=== PATIENT | male | born 1955 | race Caucasian/White ===

== ENCOUNTER 2019-06-21 12:43 | Emergency (ER) | payer MEDICARE ==
--- NOTE | 2019-06-21 13:22 | EDM.PDOC ---
ED HPI GENERAL MEDICAL PROBLEM - General Chief Complaint: Neurological Problem Stated Complaint: [facility] Time Seen by Provider: 06/21/19 13:00 - History of Present Illness INITIAL COMMENTS - FREE TEXT/NARRATIVE: 64-year-old male presents the emergency room brought in by [facility] after developing lightheadedness at work. 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 The patient had no idea that someone like this was going to happen. This was not associated with palpitations chest pain chest pressure or breathing difficulties or shortness of breath. Patient has a history of atrial fibrillation and is currently taking Rythmol 80 mg twice daily and diltiazem 240 mg XL in the evenings. Patient also has a history of hypothyroidism diabetes depression. He does take a baby aspirin at night. 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 Treatments OPERATOR SPECIALIST COMMUNICATIONS: Reports: Other (see below) Other Treatments OPERATOR SPECIALIST COMMUNICATIONS: none - Related Data Allergies Allergy/AdvReac Type Severity Reaction Status Date / Time levofloxacin [From Levaquin] Allergy Intermediate Edema Verified 08/27/15 05:32 Home Meds: Home Meds Diltiazem [Cardizem CD] 240 mg PO DAILY 09/18/13 [History] Glucotrol. 40 mg PO DAILY 09/18/13 [History] Levothyroxine 225 mcg PO DAILY 11/06/13 [History] Citalopram [Celexa] 10 mg PO DAILY 07/16/15 [History] ClonazePAM [KlonoPIN] 0.25 mg PO TID PRN #90 tab.dis 07/16/15 [Rx] Pravastatin [Pravachol] 40 mg PO BEDTIME 07/16/15 [History] Albuterol/Ipratropium [DuoNeb 3.0-0.5 MG/3 ML] 3 ml NEB Q4H PRN #0 neb 07/17/15 [Rx] Fluticasone/Salmeterol [Advair 250-50] 1 puff INH BID inhaler 07/17/15 [Rx] Canagliflozin [Invokana] 08/27/15 [History] Canagliflozin/Metformin HCl [Invokamet 150-1,000 mg Tablet] 1 tab PO BID [History] Magnesium Oxide 400 mg PO DAILY #14 tablet 08/27/15 [Rx] Propafenone [Rythmol] 600 mg PO ASDIRECTED PRN 08/27/15 [History] Diltiazem [Cardizem CD] 120 mg PO DAILY #30 cap.er 06/21/19 [Rx] Past Medical History Other HEENT History: wears glasses Cardiovascular History: Reports: Afib, High Cholesterol, Hypertension Respiratory History: Reports: Asthma Gastrointestinal History: Reports: Cholelithiasis Endocrine/Metabolic History: Reports: Diabetes, Type II - Past Surgical History GI Surgical History: Reports: Cholecystectomy Social & Family History - Family History Cardiac: Reports: [place] Neurological: Reports: CVA Endocrine/Metabolic: Reports: Diabetes, type II - Tobacco Use Smoking Status *Q: Never Smoker - Caffeine Use Caffeine Use: Reports: Coffee, Soda - Recreational Drug Use Recreational Drug Use: No ED ROS GENERAL - Review of Systems Review Of Systems: See Below Constitutional: Reports: No Symptoms HEENT: Reports: No Symptoms Respiratory: Reports: No Symptoms Cardiovascular: Reports: Lightheadedness. Denies: Chest Pain, Dyspnea on Exertion, Palpitations Endocrine: Reports: No Symptoms GI/Abdominal: Reports: No Symptoms Neurological: Reports: No Symptoms Psychiatric: Reports: No Symptoms Hematologic/Lymphatic: Reports: No Symptoms ED EXAM, GENERAL - Physical Exam Exam: See Below Exam Limited By: No Limitations General Appearance: Alert, No Apparent Distress Head: Atraumatic, Normocephalic Neck: Normal Inspection, Supple, Non-Tender, Full Range of Motion. No: Lymphadenopathy (L), Lymphadenopathy (R) Respiratory/Chest: No Respiratory Distress, Lungs Clear, Normal Breath Sounds Cardiovascular: Regular Rate, Rhythm, No Edema, No Murmur, Bradycardia (Rate in the 50s) GI/Abdominal: Normal Bowel Sounds, Soft, Non-Tender Back Exam: Normal Inspection. No: CVA Tenderness (L), CVA Tenderness (R) Extremities: Normal Inspection, No Pedal Edema Neurological: Alert, Oriented, Normal Cognition EKG INTERPRETATION EKG Date: 06/21/19 Rhythm: Other (Probable sinus bradycardia rate 51 he has consistent P waves in lead II but P waves are not evident in most the other leads) [place]: Normal P-Wave: Present QRS: Other (Borderline intermittent ventricular conduction delay) ST-T: Other (Nonspecific changes nondiagnostic mostly normal) QT: Normal Comparison: No Change EKG Interpretation Comments: Review to EKG from August 2015 which is essentially unchanged. Course - Vital Signs Last Recorded V/S: Last Vital Signs Temp 35.2 C L 06/21/19 12:52 Pulse 53 L 06/21/19 12:52 Resp 17 06/21/19 12:52 BP 113/79 06/21/19 12:52 Pulse Ox 98 06/21/19 12:52 - Orders/Labs/Meds Orders: Active Orders 24 hr Category Date Time Status EKG Documentation Completion [RC] STAT Care 06/21/19 13:17 Active Holter Monitor 48 Hours [RC] .PRN Care 06/21/19 15:39 Ordered EKG 12 Lead [EK] Stat Ther 06/21/19 13:06 Ordered Labs: Laboratory Tests 06/21/19 06/21/19 Range/Units 13:00 13:00 WBC 10.09 H (4.23-9.07) K/mm3 RBC 4.85 (4.63-6.08) M/mm3 Hgb 15.5 (13.7-17.5) gm/dl Hct 46.1 (40.1-51.0) % MCV 95.1 H (79.0-92.2) fl MCH 32.0 (25.7-32.2) pg MCHC 33.6 (32.2-35.5) g/dl RDW Std Deviation 44.1 H (35.1-43.9) fL Plt Count 187 (163-337) K/mm3 MPV 10.8 (9.4-12.3) fl Neutrophils % (Manual) 73 H (40-60) % Band Neutrophils % 0 (0-10) % Lymphocytes % (Manual) 20 (20-40) % Atypical Lymphs % 0 % Monocytes % (Manual) 7 (2-10) % Eosinophils % (Manual) 0 L (0.8-7.0) % Basophils % (Manual) 0 L (0.2-1.2) Platelet Estimate Adequate RBC Morph Comment Normal Sodium 139 (136-145) mEq/L Potassium 4.8 (3.5-5.1) mEq/L Chloride 104 (98-107) mEq/L Carbon Dioxide 26 (21-32) mEq/L Anion Gap 13.8 (5-15) BUN 20 H (7-18) mg/dL Creatinine 1.2 (0.7-1.3) mg/dL Est Cr Clr Drug Dosing 67.36 mL/min Estimated GFR (MDRD) > 60 (>60) mL/min BUN/Creatinine Ratio 16.7 (14-18) Glucose 236 H (80-115) mg/dL Calcium 8.6 (8.5-10.1) mg/dL Magnesium 2.0 (1.8-2.4) mg/dl Total Bilirubin 0.4 (0.2-1.0) mg/dL AST 28 (15-37) U/L ALT 55 (16-63) U/L Alkaline Phosphatase 73 (46-116) U/L Troponin I < 0.017 (0.00-0.056) ng/mL Total Protein 7.0 (6.4-8.2) g/dl Albumin 3.6 (3.4-5.0) g/dl Globulin 3.4 gm/dL Albumin/Globulin Ratio 1.1 (1-2) TSH 3rd Generation 2.385 (0.358-3.74) uIU/mL - Re-Assessments/Exams Free Text/Narrative Re-Assessment/Exam: 06/21/19 15:41 EKG shows probable sinus bradycardia he is got P waves only seen in lead II cannot necessarily exclude a junctional rhythm but think it is highly unlikely. He has some borderline interventricular conduction delay this is unchanged from his prior EKG almost 3 years ago with him being on Rythmol, A1c antiarrhythmic QRS widening could be an indication to back off his dose however this does not appear to be the case as this looks like it is a stable EKG change. The patient takes Rythmol 80 mg twice daily and diltiazem XL 240 mg daily. I did review the situation with Dr. Mccann cofferdam construction supervisor for Dr. Marinelli, and we agreed the best course of treatment would be decrease his diltiazem to 120 XL mg a day in the unlikely chance he is in a junctional rhythm backing off the diltiazem will also help with this. Departure - Departure Time of Disposition: 15:44 Disposition: Home, Self-Care 01 Clinical Impression: Near syncope, Bradycardia - Discharge Information Prescriptions: Diltiazem [Cardizem CD] 120 mg PO DAILY #30 cap.er Referrals: Jany Barney PA-C [Primary Care Provider] - Forms: ED Department Discharge Additional Instructions: Turn to the emergency room with any questions problems or worsening symptoms. Return the Holter as directed. Change the diltiazem from 240 mg to 120 mg a day. Follow-up with Dr. Marinelli in a couple of weeks. Sepsis Event Note - Evaluation Sepsis Screening Result: No Definite Risk - Focused Exam Vital Signs: Vital Signs Temp Pulse Resp BP Pulse Ox 06/21/19 12:52 35.2 C L 53 L 17 113/79 98 Date Exam was Performed: 06/21/19 Time Exam was Performed: 15:40 - My Orders Last 24 Hours: My Active Orders 06/21/19 13:06 EKG 12 Lead [EK] Stat 06/21/19 13:17 EKG Documentation Completion [RC] STAT 06/21/19 15:39 Holter Monitor 48 Hours [RC] .PRN - Assessment/Plan Last 24 Hours: My Active Orders 06/21/19 13:06 EKG 12 Lead [EK] Stat 06/21/19 13:17 EKG Documentation Completion [RC] STAT 06/21/19 15:39 Holter Monitor 48 Hours [RC] .PRN
--- NOTE | 2019-06-21 15:23 | CR ---
Chest: Portable view of the chest was obtained. Comparison: [facility] chest CT study of 12/07/15 and chest x-ray of 11/15/15. Heart size and mediastinum are within normal limits for portable technique. Lungs are clear with no acute parenchymal change. Bony structures are grossly intact. Impression: 1. Nothing acute is appreciated on portable chest x-ray. Diagnostic code #1 This report was dictated in [place] Standard Time
[2019-06-21 16:25] VITALS: BP 102/69; PULSE 65
== END 2019-06-21 16:20 | disposition home or self-care (01) ==
LOC: SUPCPDRO 12:43 → JD.ED 12:43
DX: R00.1 Bradycardia, unspecified (principal); I10 Essential (primary) hypertension; Z88.1 Allergy status to other antibiotic agents; Z79.899 Other long term (current) drug therapy
CPT/HCPCS: 36415; 71045; 71045-26; 80053; 83735; 84443; 84484; 85007; 85027; 93005; 93010; 93225; 93226; 99284; 99284-25

== ENCOUNTER 2019-07-12 20:48 | Emergency (ER) | payer MEDICARE ==
[2019-07-12] MEDS ORDERED: Sodium Chloride 0.9% 1,000 ML IV STA (21:20)
[2019-07-12] MEDS ORDERED: Sodium Chloride 0.9% 10 ML Syringe FLUSH PRN (21:20)
--- NOTE | 2019-07-12 21:47 | EDM.PDOC ---
ED HPI GENERAL MEDICAL PROBLEM - General Chief Complaint: Gastrointestinal Problem Stated Complaint: [facility] Time Seen by Provider: 07/12/19 21:09 Source of Information: Reports: Patient, EMS History Limitations: Reports: No Limitations - History of Present Illness INITIAL COMMENTS - FREE TEXT/NARRATIVE: The patient presents by [facility] for a fever, nausea and vomiting. He says this started today. He has no other symptoms such as cough, sore throat, ear pain, chest pain, shortness of breath, abdominal pain, dysuria or diarrhea. He said his heart rate was faster today. He has a history of A-fib but he has been out of it for years. He has no numbness but he does have generalized weakness. Onset: Gradual Duration: Hour(s): Severity: Moderate Improves with: Reports: None Worsens with: Reports: None Associated Symptoms: Reports: Fever/Chills, Nausea/Vomiting. Denies: Chest Pain , Cough, Headaches, Shortness of Breath - Related Data Allergies Allergy/AdvReac Type Severity Reaction Status Date / Time levofloxacin [From Levaquin] Allergy Intermediate Edema Verified 07/12/19 20:58 Home Meds: Home Meds Levothyroxine 275 mcg PO DAILY 11/06/13 [History] Citalopram [Celexa] 10 mg PO DAILY 07/16/15 [History] Propafenone [Rythmol] 300 mg PO BID 08/27/15 [History] Aspirin 81 mg PO DAILY 07/12/19 [History] Cephalexin [Keflex] 500 mg PO BID #14 capsule 07/12/19 [Rx] Diltiazem [Cardizem CD] 110 mg PO DAILY 07/12/19 [History] Liraglutide [Victoza] 1.8 mg PO DAILY 07/12/19 [History] Ondansetron [Zofran ODT] 4 mg PO Q6H PRN #20 tab.dis 07/12/19 [Rx] Rosuvastatin [Crestor] 10 mg PO DAILY 07/12/19 [History] Temazepam [Restoril] 30 mg PO DAILY 07/12/19 [History] glipiZIDE [Glucotrol XL] 10 mg PO DAILY 07/12/19 [History] Past Medical History Other HEENT History: wears glasses Cardiovascular History: Reports: Afib, High Cholesterol, Hypertension Respiratory History: Reports: Asthma Gastrointestinal History: Reports: Cholelithiasis, Other (See Below) Other Gastrointestinal History: CDIFF Neurological History: Reports: Other (See Below) Other Neuro History: myasthenia gravis Endocrine/Metabolic History: Reports: Diabetes, Type II, Hypothyroidism - Infectious Disease History Infectious Disease History: Reports: C-Difficile - Past Surgical History GI Surgical History: Reports: Cholecystectomy Musculoskeletal Surgical History: Reports: Shoulder Surgery Social & Family History - Family History Cardiac: Reports: [place] Neurological: Reports: CVA Endocrine/Metabolic: Reports: Diabetes, type II - Tobacco Use Smoking Status *Q: Never Smoker Second Hand Smoke Exposure: No - Caffeine Use Caffeine Use: Reports: Soda - Recreational Drug Use Recreational Drug Use: No ED ROS GENERAL - Review of Systems Review Of Systems: See Below Constitutional: Reports: Fever, Chills HEENT: Reports: No Symptoms Respiratory: Reports: No Symptoms Cardiovascular: Reports: No Symptoms Endocrine: Reports: No Symptoms GI/Abdominal: Reports: Nausea, Vomiting. Denies: Abdominal Pain, Diarrhea : Reports: No Symptoms Musculoskeletal: Reports: No Symptoms ED EXAM, GI/ABD - Physical Exam Exam: See Below Exam Limited By: No Limitations General Appearance: Alert, No Apparent Distress Ears: Normal External Exam Nose: Normal Inspection Head: Atraumatic, Normocephalic Neck: Normal Inspection Respiratory/Chest: No Respiratory Distress, Lungs Clear, Normal Breath Sounds Cardiovascular: Regular Rate, Rhythm, No Edema, No Murmur GI/Abdominal Exam: Soft, Non-Tender, No Organomegaly, No Mass Extremities: Normal Inspection EKG INTERPRETATION EKG Date: 07/12/19 Time: 21:32 Rhythm: NSR Rate (Beats/Min): 81 [place]: Normal P-Wave: Present QRS: Normal ST-T: Normal QT: Normal Course - Vital Signs Last Recorded V/S: Last Vital Signs Temp 97.1 F 07/12/19 20:55 Pulse 84 07/12/19 20:55 Resp 16 07/12/19 20:55 BP 113/66 07/12/19 20:55 Pulse Ox 94 L 07/12/19 20:55 - Orders/Labs/Meds Orders: Active Orders 24 hr Category Date Time Status EKG Documentation Completion [RC] ASDIRECTED Care 07/12/19 21:21 Active Peripheral IV Care [RC] . DIRECTED Care 07/12/19 21:21 Active CULTURE URINE [RM] Stat Lab 07/12/19 22:00 Received Sodium Chloride 0.9% [Saline Flush] Med 07/12/19 21:20 Active 10 ml FLUSH ASDIRECTED PRN Peripheral IV Insertion Adult [OM.PC] Stat Oth 07/12/19 21:20 Ordered EKG 12 Lead [EK] Stat Ther 07/12/19 21:21 Ordered Medication Orders Sodium Chloride (Saline Flush) 10 ml FLUSH ASDIRECTED PRN PRN Reason: Keep Vein Open Last Admin: 07/12/19 21:37 Dose: 10 ml Labs: Laboratory Tests 07/12/19 07/12/19 07/12/19 Range/Units 21:30 21:30 22:00 WBC 17.40 H (4.23-9.07) K/mm3 RBC 4.42 L (4.63-6.08) M/mm3 Hgb 14.3 (13.7-17.5) gm/dl Hct 42.2 (40.1-51.0) % MCV 95.5 H (79.0-92.2) fl MCH 32.4 H (25.7-32.2) pg MCHC 33.9 (32.2-35.5) g/dl RDW Std Deviation 44.1 H (35.1-43.9) fL Plt Count 185 (163-337) K/mm3 MPV 10.5 (9.4-12.3) fl Neut % (Auto) 84.6 H (34.0-67.9) % Lymph % (Auto) 6.1 L (21.8-53.1) % [place] % (Auto) 8.9 (5.3-12.2) % Eos % (Auto) 0.1 L (0.8-7.0) Baso % (Auto) 0.1 (0.1-1.2) % Neut # (Auto) 14.71 H (1.78-5.38) K/mm3 Lymph # (Auto) 1.07 L (1.32-3.57) K/mm3 [place] # (Auto) 1.55 H (0.30-0.82) K/mm3 Eos # (Auto) 0.02 L (0.04-0.54) K/mm3 Baso # (Auto) 0.02 (0.01-0.08) K/mm3 Manual Slide Review Abnormal smear Sodium 132 L (136-145) mEq/L Potassium 4.0 (3.5-5.1) mEq/L Chloride 97 L (98-107) mEq/L Carbon Dioxide 24 (21-32) mEq/L Anion Gap 15.0 (5-15) BUN 20 H (7-18) mg/dL Creatinine 1.5 H (0.7-1.3) mg/dL Est Cr Clr Drug Dosing 53.89 mL/min Estimated GFR (MDRD) 47 (>60) mL/min BUN/Creatinine Ratio 13.3 L (14-18) Glucose 262 H (80-115) mg/dL Calcium 9.0 (8.5-10.1) mg/dL Total Bilirubin 1.1 H (0.2-1.0) mg/dL AST 14 L (15-37) U/L ALT 39 (16-63) U/L Alkaline Phosphatase 65 (46-116) U/L Troponin I < 0.017 (0.00-0.056) ng/mL Total Protein 6.9 (6.4-8.2) g/dl Albumin 3.4 (3.4-5.0) g/dl Globulin 3.5 gm/dL Albumin/Globulin Ratio 1.0 (1-2) Urine Color [place] H (Yellow) Urine Appearance Cloudy H (Clear) Urine pH 5.5 (5.0-8.0) Ur Specific [place] > or = 1.030 (1.005-1.030) Urine Protein 1+ H (Negative) Urine Glucose (UA) Negative (Negative) Urine Ketones 2+ H (Negative) Urine Occult Blood Trace-intact H (Negative) Urine Nitrite Positive H (Negative) Urine Bilirubin 1+ H (Negative) Urine Urobilinogen 0.2 (0.2-1.0) Ur Leukocyte Esterase 2+ H (Negative) Urine RBC 5-10 H (0-5) /hpf Urine WBC 50-75 H (0-5) /hpf Urine WBC Clumps Few (NOT SEEN) /hpf Ur Squamous Epith Cells 0-5 (0-5) /hpf Urine Bacteria Moderate H (FEW) /hpf Urine Mucus Many H (FEW) /hpf Meds: Medications Generic Name Dose Route Start Last Admin Trade Name Freq PRN Reason Stop Dose Admin Sodium Chloride 10 ml 07/12/19 21:20 07/12/19 21:37 Saline Flush FLUSH 10 ml ASDIRECTED PRN Administration Keep Vein Open Discontinued Medications Generic Name Dose Route Start Last Admin Trade Name [place]acido PRN Reason Stop Dose Admin Acetaminophen 975 mg 07/12/19 22:34 07/12/19 22:42 Tylenol PO 07/12/19 22:35 975 mg NOW ONE Administration Sodium Chloride 1,000 mls @ 1,000 mls/hr 07/12/19 21:20 07/12/19 21:37 Normal Saline IV 07/12/19 22:19 1,000 mls/hr .BOLUS STA Administration Ceftriaxone Sodium 2 gm/ 100 mls @ 200 mls/hr 07/12/19 22:28 07/12/19 22:40 Sodium Chloride IV 07/12/19 22:57 200 mls/hr ONETIME ONE Administration Ondansetron HCl 4 mg 07/12/19 23:15 Zofran Odt PO 07/12/19 23:16 ONETIME ONE - Re-Assessments/Exams Free Text/Narrative Re-Assessment/Exam: 07/12/19 21:46 I ordered an IV NS 1L bolus, labs, UA and an EKG. He did get zofran by [facility]. 07/12/19 23:16 His WBC was elevated at 17.4. His Na was a little low at 132. His creatine was elevated at 1.5. His glucose is 262. His troponin is negative. His UA shows a UTI. I have ordered a urine culture and rocephin 2 grams IV. His EKG shows a NSR with no acute changes. He was able to keep down some water and he feels better. I feel it is safe to discharge him home. Departure - Departure Time of Disposition: 23:20 Disposition: Home, Self-Care 01 Condition: Good Clinical Impression: UTI (urinary tract infection) Qualifiers: Urinary tract infection type: site unspecified Hematuria presence: without hematuria Qualified Code(s): N39.0 - Urinary tract infection, site not specified Nausea and vomiting Qualifiers: Vomiting type: unspecified Vomiting Intractability: non-intractable Qualified Code(s): R11.2 - Nausea with vomiting, unspecified - Discharge Information *PRESCRIPTION DRUG MONITORING PROGRAM REVIEWED*: Not Applicable *COPY OF PRESCRIPTION DRUG MONITORING REPORT IN PATIENT KELLY: Not Applicable Prescriptions: Cephalexin [Keflex] 500 mg PO BID #14 capsule Ondansetron [Zofran ODT] 4 mg PO Q6H PRN #20 tab.dis PRN Reason: Nausea\vomiting Referrals: PCP,None [Primary Care Provider] - Jany Barney PA-C [Physician Mortuary Operations Manager] - 3 Days Forms: ED Department Discharge Additional Instructions: Drink plenty of fluids. Take the keflex 2 times per day for a week. Take the zofran every 6 hours as needed for nausea and vomiting. Take tylenol or motrin for any pain or fever. Follow up with Olya Barney within 3 days. Pleaser return if you are worse. Sepsis Event Note - Evaluation Sepsis Screening Result: No Definite Risk - Focused Exam Vital Signs: Vital Signs Temp Pulse Resp BP Pulse Ox 07/12/19 20:55 97.1 F 84 16 113/66 94 L Date Exam was Performed: 07/12/19 Time Exam was Performed: 23:16 - My Orders Last 24 Hours: My Active Orders 07/12/19 21:20 Sodium Chloride 0.9% [Saline Flush] 10 ml FLUSH ASDIRECTED PRN Peripheral IV Insertion Adult [OM.PC] Stat 07/12/19 21:21 EKG Documentation Completion [RC] ASDIRECTED Peripheral IV Care [RC] . DIRECTED EKG 12 Lead [EK] Stat 07/12/19 22:00 CULTURE URINE [RM] Stat - Assessment/Plan Last 24 Hours: My Active Orders 07/12/19 21:20 Sodium Chloride 0.9% [Saline Flush] 10 ml FLUSH ASDIRECTED PRN Peripheral IV Insertion Adult [OM.PC] Stat 07/12/19 21:21 EKG Documentation Completion [RC] ASDIRECTED Peripheral IV Care [RC] . DIRECTED EKG 12 Lead [EK] Stat 07/12/19 22:00 CULTURE URINE [RM] Stat
[2019-07-12] MEDS ORDERED: cefTRIAXone 2 GM in Sodium Chloride 0.9% 100 ML IV ONE (22:28)
[2019-07-12] MEDS ORDERED: Acetaminophen 325 MG Tab PO ONE (22:34)
[2019-07-12] MEDS ORDERED: Ondansetron 4 MG Tab.DIS PO ONE (23:15)
[2019-07-12 23:51] VITALS: BP 113/62; PULSE 82
== END 2019-07-12 23:30 | disposition home or self-care (01) ==
LOC: JD.ED 20:48
DX: N39.0 Urinary tract infection, site not specified (principal); R11.2 Nausea with vomiting, unspecified; I48.91 Unspecified atrial fibrillation; E78.00 Pure hypercholesterolemia, unspecified; I10 Essential (primary) hypertension; E11.9 Type 2 diabetes mellitus without complications; E03.9 Hypothyroidism, unspecified; Z88.1 Allergy status to other antibiotic agents; Z79.890 Hormone replacement therapy; Z79.82 Long term (current) use of aspirin; Z79.899 Other long term (current) drug therapy; Z79.84 Long term (current) use of oral hypoglycemic drugs
CPT/HCPCS: 36415; 80053; 81001; 84484; 85025; 87086; 87088; 87186; 87804; 93005; 96361; 96365; 99284; A9270; J0696; J7030; J7050; 99283

== ENCOUNTER 2019-07-13 09:57 | Emergency (ER) | payer MEDICARE ==
[2019-07-13] MEDS ORDERED: Sodium Chloride 0.9% 10 ML Syringe FLUSH PRN (10:18)
[2019-07-13] MEDS ORDERED: Sodium Chloride 0.9% 1,000 ML IV SCH ×3 (10:30→15:45)
[2019-07-13] MEDS ORDERED: Lactated Ringers 1,000 ML IV ONE (13:00)
--- NOTE | 2019-07-13 13:29 | EDM.PDOC ---
ED HPI GENERAL MEDICAL PROBLEM - General Chief Complaint: Cardiovascular Problem Stated Complaint: [facility] Time Seen by Provider: 07/13/19 10:07 Source of Information: Reports: Patient, RN Notes Reviewed - History of Present Illness INITIAL COMMENTS - FREE TEXT/NARRATIVE: 64-year-old male returns to the ED this morning nausea, vomiting, dizziness. He did have sensation of palpitations at home. He was brought here [facility] route [facility] and patient states that there were episodes of his heart rate is fast is up into the 150s during transport but those episodes were all relatively brief. ED he still does feel weak and dizzy but has found to be in a sinus rhythm with a normal rate. He states he was ill all of yesterday with nausea vomiting. Dilated here in the ED last evening and in addition to the nausea vomiting was found to have a UTI with an elevated BBC count history of with 2 g IV Rocephin as well as IV fluid and allowed to go home. Her in the night then with the above-described symptoms us morning. Nausea was better at time of exam. No abdominal or back discomfort at time of exam. His mouth does feel dry. No definite fever. - Related Data Allergies Allergy/AdvReac Type Severity Reaction Status Date / Time levofloxacin [From Levaquin] Allergy Intermediate Edema Verified 07/13/19 10:10 Home Meds: Home Meds Levothyroxine 275 mcg PO DAILY 11/06/13 [History] Citalopram [Celexa] 10 mg PO DAILY 07/16/15 [History] Propafenone [Rythmol] 300 mg PO BID 08/27/15 [History] Aspirin 81 mg PO DAILY 07/12/19 [History] Cephalexin [Keflex] 500 mg PO BID #14 capsule 07/12/19 [Rx] Diltiazem [Cardizem CD] 110 mg PO DAILY 07/12/19 [History] Liraglutide [Victoza] 1.8 mg INJECT DAILY 07/12/19 [History] Ondansetron [Zofran ODT] 4 mg PO Q6H PRN #20 tab.dis 07/12/19 [Rx] Rosuvastatin [Crestor] 10 mg PO DAILY 07/12/19 [History] Temazepam [Restoril] 30 mg PO DAILY 07/12/19 [History] glipiZIDE [Glucotrol XL] 10 mg PO DAILY 07/12/19 [History] Past Medical History Other HEENT History: wears glasses Cardiovascular History: Reports: Afib, High Cholesterol, Hypertension Respiratory History: Reports: Asthma Gastrointestinal History: Reports: Cholelithiasis, Other (See Below) Other Gastrointestinal History: CDIFF Neurological History: Reports: Other (See Below) Other Neuro History: myasthenia gravis Endocrine/Metabolic History: Reports: Diabetes, Type II, Hypothyroidism - Infectious Disease History Infectious Disease History: Reports: C-Difficile - Past Surgical History GI Surgical History: Reports: Cholecystectomy Musculoskeletal Surgical History: Reports: Shoulder Surgery Social & Family History - Family History Cardiac: Reports: [place] Neurological: Reports: CVA Endocrine/Metabolic: Reports: Diabetes, type II - Tobacco Use Smoking Status *Q: Former Smoker Used Tobacco, but Quit: No - Caffeine Use Caffeine Use: Reports: Coffee - Recreational Drug Use Recreational Drug Use: No ED ROS GENERAL - Review of Systems Review Of Systems: See Below Constitutional: Denies: Fever, Chills, Diaphoresis HEENT: Denies: Throat Pain Respiratory: Denies: Shortness of Breath Cardiovascular: Denies: Chest Pain, Edema GI/Abdominal: Reports: Abdominal Pain, Nausea (Gone), Vomiting. Denies: Diarrhea (Now better), Hematemesis, Hematochezia, Melena Musculoskeletal: Reports: No Symptoms Skin: Reports: No Symptoms Neurological: Reports: Dizziness ED EXAM, GENERAL - Physical Exam Exam: See Below General Appearance: Alert, No Apparent Distress Eye Exam: Bilateral Eye: PERRL Throat/Mouth: Other (Oral mucosa is dry) Head: Atraumatic. No: Facial Swelling Neck: Supple, Full Range of Motion Respiratory/Chest: No Respiratory Distress, Lungs Clear, Normal Breath Sounds Cardiovascular: Regular Rate, Rhythm GI/Abdominal: Soft, Non-Tender. No: Guarding Back Exam: No: CVA Tenderness (L), CVA Tenderness (R) Extremities: Normal Inspection. No: Pedal Edema, Leg Pain, Redness Neurological: Alert, Oriented, No Motor/Sensory Deficits Skin Exam: Warm, Dry, Normal Color Course - Vital Signs Last Recorded V/S: Last Vital Signs Temp 99.2 F 07/13/19 10:04 Pulse 70 07/13/19 17:00 Resp 14 07/13/19 17:00 BP 114/60 07/13/19 17:00 Pulse Ox 100 07/13/19 17:00 - Orders/Labs/Meds Orders: Active Orders 24 hr Category Date Time Status EKG 12 Lead [EKG Documentation Completion] [] STAT Care 07/13/19 10:18 Active Peripheral IV Care [RC] . DIRECTED Care 07/13/19 10:19 Active Peripheral IV Insertion Adult [OM.PC] Stat Oth 07/13/19 10:18 Ordered Labs: Laboratory Tests 07/13/19 07/13/19 Range/Units 10:38 10:38 WBC 15.98 H (4.23-9.07) K/mm3 RBC 4.05 L (4.63-6.08) M/mm3 Hgb 13.0 L (13.7-17.5) gm/dl Hct 38.9 L (40.1-51.0) % MCV 96.0 H (79.0-92.2) fl MCH 32.1 (25.7-32.2) pg MCHC 33.4 (32.2-35.5) g/dl RDW Std Deviation 45.6 H (35.1-43.9) fL Plt Count 152 L (163-337) K/mm3 MPV 10.5 (9.4-12.3) fl Neut % (Auto) 84.9 H (34.0-67.9) % Lymph % (Auto) 5.5 L (21.8-53.1) % [place] % (Auto) 9.1 (5.3-12.2) % Eos % (Auto) 0 L (0.8-7.0) Baso % (Auto) 0.1 (0.1-1.2) % Neut # (Auto) 13.57 H (1.78-5.38) K/mm3 Lymph # (Auto) 0.88 L (1.32-3.57) K/mm3 [place] # (Auto) 1.45 H (0.30-0.82) K/mm3 Eos # (Auto) 0.00 L (0.04-0.54) K/mm3 Baso # (Auto) 0.01 (0.01-0.08) K/mm3 Manual Slide Review Abnormal smear Sodium 131 L (136-145) mEq/L Potassium 3.5 (3.5-5.1) mEq/L Chloride 99 (98-107) mEq/L Carbon Dioxide 22 (21-32) mEq/L Anion Gap 13.5 (5-15) BUN 19 H (7-18) mg/dL Creatinine 1.3 (0.7-1.3) mg/dL Est Cr Clr Drug Dosing 62.18 mL/min Estimated GFR (MDRD) 55 (>60) mL/min BUN/Creatinine Ratio 14.6 (14-18) Glucose 264 H (80-115) mg/dL Calcium 8.2 L (8.5-10.1) mg/dL Total Bilirubin 0.8 (0.2-1.0) mg/dL AST 12 L (15-37) U/L ALT 31 (16-63) U/L Alkaline Phosphatase 58 (46-116) U/L Total Protein 6.2 L (6.4-8.2) g/dl Albumin 2.9 L (3.4-5.0) g/dl Globulin 3.3 gm/dL Albumin/Globulin Ratio 0.9 L (1-2) Meds: Medications Discontinued Medications Generic Name Dose Route Start Last Admin Trade Name Freq PRN Reason Stop Dose Admin Sodium Chloride 1,000 mls @ 999 mls/hr 07/13/19 10:30 07/13/19 10:25 Normal Saline IV 999 mls/hr ONETIME SHREYAS Administration Lactated Ringer's 1,000 mls @ 999 mls/hr 07/13/19 13:00 07/13/19 13:03 Ringers, Lactated IV 07/13/19 14:00 999 mls/hr .BOLUS ONE Administration Ceftriaxone Sodium 2 gm/ 100 mls @ 200 mls/hr 07/13/19 15:45 07/13/19 15:51 Sodium Chloride IV 200 mls/hr Q24H SHREYAS Administration Sodium Chloride 1,000 mls @ 999 mls/hr 07/13/19 15:45 07/13/19 15:51 Normal Saline IV 999 mls/hr ONETIME SHREYAS Administration Sodium Chloride 1,000 mls @ 999 mls/hr 07/13/19 15:45 Normal Saline IV ONETIME SHREYAS Sodium Chloride 10 ml 07/13/19 10:18 07/13/19 10:25 Saline Flush FLUSH 10 ml ASDIRECTED PRN Administration Keep Vein Open - Re-Assessments/Exams Free Text/Narrative Re-Assessment/Exam: 07/13/19 13:28 Have given 1 L of normal saline. Also given Zofran for nausea vomiting. He feels much better at this time, nausea is gone, no abdominal pain at this time. Pressures been running low in the mid 90s systolic over upper 60s. He still has not had to void. We'll run one more liter of fluid and continue to watch his blood pressures carefully. 16:00. Blood pressure still relatively low at around 100 systolic after the second liter of IV fluid, he still was not voided he continues to have no further abdominal pain, nausea or vomiting making water and also was able to tolerate some soup broth without difficulty. Therefore he should be over go home. Her dose of 2 g Rocephin IV, further IV fluid before discharge. 17:40. Blood pressure did come up to the 115 range, after about 2-1/2 L of fluid. Did void a short time ago, discharge instructions as documented. No runs of A. fib while here in the ED. Departure - Departure Time of Disposition: 16:36 Disposition: Home, Self-Care 01 Condition: Fair Clinical Impression: Palpitations UTI (urinary tract infection) Qualifiers: Urinary tract infection type: site unspecified Hematuria presence: without hematuria Qualified Code(s): N39.0 - Urinary tract infection, site not specified Vomiting Qualifiers: Vomiting type: unspecified Vomiting Intractability: non-intractable Nausea presence: with nausea Qualified Code(s): R11.2 - Nausea with vomiting, unspecified Hypotension Qualifiers: Hypotension type: unspecified hypotension type Qualified Code(s): I95.9 - Hypotension, unspecified Instructions: Sepsis, Adult, Urinary Tract Infection, Adult Referrals: Jany Barney PA-C [Primary Care Provider] - Forms: ED Department Discharge Additional Instructions: Clear liquids for the next several hours, then very careful bland diet as tolerated, start the cephalexin prescribed by Dr. [place] tomorrow morning and continue that as prescribed to completion. Continue other medications as prescribed. [facility] possible Thursday for recheck. Return to ED as needed if symptoms worsening in any way Sepsis Event Note - Evaluation Sepsis Screening Result: No Definite Risk - Focused Exam Vital Signs: Vital Signs Temp Pulse Resp BP Pulse Ox 07/13/19 17:00 70 14 114/60 100 07/13/19 10:04 99.2 F 79 18 104/65 89 L Date Exam was Performed: 07/13/19 Time Exam was Performed: 20:20 - My Orders Last 24 Hours: My Active Orders 07/13/19 10:18 EKG 12 Lead [EKG Documentation Completion] [RC] STAT Peripheral IV Insertion Adult [OM.PC] Stat 07/13/19 10:19 Peripheral IV Care [RC] . DIRECTED - Assessment/Plan Last 24 Hours: My Active Orders 07/13/19 10:18 EKG 12 Lead [EKG Documentation Completion] [RC] STAT Peripheral IV Insertion Adult [OM.PC] Stat 07/13/19 10:19 Peripheral IV Care [RC] . DIRECTED
[2019-07-13] MEDS ORDERED: cefTRIAXone 2 GM in Sodium Chloride 0.9% 100 ML IV SCH (15:45)
[2019-07-13 17:04] VITALS: BP 114/60; PULSE 70
== END 2019-07-13 17:03 | disposition home or self-care (01) ==
LOC: JD.ED 09:57
DX: R00.2 Palpitations (principal); N39.0 Urinary tract infection, site not specified; R11.2 Nausea with vomiting, unspecified; I95.9 Hypotension, unspecified; I48.91 Unspecified atrial fibrillation; E78.00 Pure hypercholesterolemia, unspecified; I10 Essential (primary) hypertension; E11.9 Type 2 diabetes mellitus without complications; E03.9 Hypothyroidism, unspecified; Z88.1 Allergy status to other antibiotic agents; Z79.890 Hormone replacement therapy; Z79.899 Other long term (current) drug therapy; Z79.82 Long term (current) use of aspirin; Z79.84 Long term (current) use of oral hypoglycemic drugs; Z87.891 Personal history of nicotine dependence
CPT/HCPCS: 36415; 80053; 85025; 93005; 96361; 96365; 99285; J0696; J7030; J7050; J7120

== ENCOUNTER 2021-06-08 17:22 | Emergency (ER) | payer MEDICARE ==
[2021-06-08] MEDS ORDERED: Sodium Chloride 0.9% 10 ML Syringe FLUSH PRN (17:55)
--- NOTE | 2021-06-08 18:51 | EDM.PDOC ---
ED HPI GENERAL MEDICAL PROBLEM - General Chief Complaint: Cardiovascular Problem Stated Complaint: IRREGULAR HEART BEAT Time Seen by Provider: 06/08/21 17:47 Source of Information: Reports: Patient History Limitations: Reports: No Limitations - History of Present Illness INITIAL COMMENTS - FREE TEXT/NARRATIVE: The patient presents with palpitations. The patient has a history of A-fib. He sees Dr Marinelli the silo man at [facility] in [place]. He was on Propofenone and stopped it a few months ago because he was doing good in a low dose. He got COVID in April and has not felt great since. He has generalized weakness and some shortness of breath and a slight cough. He noticed the past couple of days his heart has been racing. He has no chest pain with it. He has no fever, chills, cough, abdominal pain, nausea or vomiting. He has been having some trouble with his thyroid. He has been going to the mechanical maintenance. Onset: Gradual Duration: Day(s): (2) Improves with: Reports: None Worsens with: Reports: None Associated Symptoms: Reports: No Other Symptoms - Related Data Allergies Allergy/AdvReac Type Severity Reaction Status Date / Time levofloxacin [From Levaquin] Allergy Intermediate Edema Verified 06/08/21 17:44 Home Meds: Home Meds Levothyroxine 275 mcg PO DAILY 11/06/13 [History] Citalopram [Celexa] 10 mg PO DAILY 07/16/15 [History] Aspirin 81 mg PO DAILY 07/12/19 [History] Diltiazem [Cardizem CD] 110 mg PO DAILY 07/12/19 [History] Liraglutide [Victoza] 1.8 mg INJECT DAILY 07/12/19 [History] Rosuvastatin [Crestor] 10 mg PO DAILY 07/12/19 [History] Temazepam [Restoril] 30 mg PO DAILY 07/12/19 [History] glipiZIDE [Glucotrol XL] 10 mg PO DAILY 07/12/19 [History] Past Medical History Other HEENT History: wears glasses Cardiovascular History: Reports: Afib, High Cholesterol, Hypertension Respiratory History: Reports: Asthma Gastrointestinal History: Reports: Cholelithiasis, Other (See Below) Other Gastrointestinal History: CDIFF Neurological History: Reports: Other (See Below) Other Neuro History: myasthenia gravis Endocrine/Metabolic History: Reports: Diabetes, Type II, Hypothyroidism - Infectious Disease History Infectious Disease History: Reports: C-Difficile, Novel Coronavirus - Past Surgical History Cardiovascular Surgical History: Reports: None GI Surgical History: Reports: Cholecystectomy Musculoskeletal Surgical History: Reports: Shoulder Surgery Social & Family History - Family History Cardiac: Reports: Afib, [place] Neurological: Reports: CVA Endocrine/Metabolic: Reports: Diabetes, type II - Tobacco Use Tobacco Use Status *Q: Never Tobacco User - Caffeine Use Caffeine Use: Reports: Coffee ED ROS GENERAL - Review of Systems Review Of Systems: See Below Constitutional: Reports: No Symptoms HEENT: Reports: No Symptoms Respiratory: Reports: No Symptoms Cardiovascular: Reports: Palpitations. Denies: Chest Pain Endocrine: Reports: No Symptoms GI/Abdominal: Reports: No Symptoms : Reports: No Symptoms Musculoskeletal: Reports: No Symptoms Skin: Reports: No Symptoms ED EXAM, GENERAL - Physical Exam Exam: See Below Exam Limited By: No Limitations General Appearance: Alert, No Apparent Distress Ears: Normal External Exam Nose: Normal Inspection Head: Atraumatic, Normocephalic Neck: Normal Inspection Respiratory/Chest: No Respiratory Distress, Lungs Clear, Normal Breath Sounds Cardiovascular: Regular Rate, Rhythm, No Edema, No Murmur GI/Abdominal: Soft, Non-Tender, No Organomegaly, No Mass Back Exam: Normal Inspection Extremities: Normal Inspection #1 Interpretation EKG Date: 06/08/21 Time: 17:51 Rhythm: NSR Rate (Beats/Min): 63 [place]: Normal P-Wave: Present QRS: Normal ST-T: Normal QT: Normal Course - Vital Signs Last Recorded V/S: Last Vital Signs Temp 98.2 F 06/08/21 17:40 Pulse 70 06/08/21 17:40 Resp 15 06/08/21 17:40 BP 144/81 H 06/08/21 17:40 Pulse Ox 96 06/08/21 17:40 - Orders/Labs/Meds Orders: Active Orders 24 hr Category Date Time Status Cardiac Monitoring [RC] . DIRECTED Care 06/08/21 17:55 Active Peripheral IV Care [RC] . DIRECTED Care 06/08/21 17:56 Active Chest 1V Frontal [CR] Stat Exams 06/08/21 17:56 Taken Sodium Chloride 0.9% [Saline Flush] Med 06/08/21 17:55 Active 10 ml FLUSH ASDIRECTED PRN Peripheral IV Insertion Adult [OM.PC] Stat Oth 06/08/21 17:55 Ordered Medication Orders Sodium Chloride (Sodium Chloride 0.9% 10 Ml Syringe) 10 ml FLUSH ASDIRECTED PRN PRN Reason: Keep Vein Open Last Admin: 06/08/21 18:36 Dose: 10 ml Documented by: STEFFEN Labs: Laboratory Tests 06/08/21 06/08/21 Range/Units 18:15 18:15 WBC 7.28 (4.23-9.07) K/mm3 RBC 4.65 (4.63-6.08) M/mm3 Hgb 14.9 (13.7-17.5) gm/dl Hct 44.3 (40.1-51.0) % MCV 95.3 H (79.0-92.2) fl MCH 32.0 (25.7-32.2) pg MCHC 33.6 (32.2-35.5) g/dl RDW Std Deviation 44.4 H (35.1-43.9) fL Plt Count 226 (163-337) K/mm3 MPV 10.0 (9.4-12.3) fl Neut % (Auto) 63.9 (34.0-67.9) % Lymph % (Auto) 26.9 (21.8-53.1) % [place] % (Auto) 6.6 (5.3-12.2) % Eos % (Auto) 2.1 (0.8-7.0) Baso % (Auto) 0.4 (0.1-1.2) % Neut # (Auto) 4.65 (1.78-5.38) K/mm3 Lymph # (Auto) 1.96 (1.32-3.57) K/mm3 [place] # (Auto) 0.48 (0.30-0.82) K/mm3 Eos # (Auto) 0.15 (0.04-0.54) K/mm3 Baso # (Auto) 0.03 (0.01-0.08) K/mm3 Sodium 141 (136-145) mEq/L Potassium 4.0 (3.5-5.1) mEq/L Chloride 106 (98-107) mEq/L Carbon Dioxide 26 (21-32) mEq/L Anion Gap 13.0 (5-15) BUN 22 H (7-18) mg/dL Creatinine 1.0 (0.7-1.3) mg/dL Est Cr Clr Drug Dosing 78.68 mL/min Estimated GFR (MDRD) > 60 (>60) mL/min BUN/Creatinine Ratio 22.0 H (14-18) Glucose 204 H (70-99) mg/dL Calcium 8.7 (8.5-10.1) mg/dL Total Bilirubin 0.4 (0.2-1.0) mg/dL AST 22 (15-37) U/L ALT 39 (16-63) U/L Alkaline Phosphatase 76 (46-116) U/L Troponin I < 0.017 (0.00-0.056) ng/mL Total Protein 6.6 (6.4-8.2) g/dl Albumin 3.3 L (3.4-5.0) g/dl Globulin 3.3 gm/dL Albumin/Globulin Ratio 1.0 (1-2) TSH 3rd Generation 0.112 L (0.358-3.74) uIU/mL Meds: Medications Generic Name Dose Route Start Last Admin Trade Name Freq PRN Reason Stop Dose Admin Sodium Chloride 10 ml 06/08/21 17:55 06/08/21 18:36 Sodium Chloride 0.9% 10 Ml Syringe FLUSH 10 ml ASDIRECTED PRN Administration Keep Vein Open - Re-Assessments/Exams Free Text/Narrative Re-Assessment/Exam: 06/08/21 18:51 I ordered an IV, EKG, CXR and labs. His EKG shows a NSR with no acute changes. 06/08/21 18:54 His CBC looks good. His glucose is elevated at 204. His troponin is negative. His TSH is low at 0.112. 06/08/21 19:03 He is on synthroid 325mcg for 5 days and then 200mcg. I will have him go down to 200mch daily. I will get him on a holter monitor for 48 hours. Departure - Departure Time of Disposition: 19:10 Disposition: Home, Self-Care 01 Condition: Good Clinical Impression: Palpitations Referrals: Jany Barney PA-C [Primary Care Provider] - 1 Week Forms: ED Department Discharge Additional Instructions: Wear the holter monitor for 48 hours. Go down to 200mcg for your synthroid. Your TSH was low at 0.112. Normal is around 2 to 3. That means you are taking to much synthroid. Follow up with Olya Barney this week. Please return if you are worse. Sepsis Event Note (ED) - Evaluation Sepsis Screening Result: No Definite Risk - Focused Exam Vital Signs: Vital Signs Temp Pulse Resp BP Pulse Ox 06/08/21 17:40 98.2 F 70 15 144/81 H 96 - My Orders Last 24 Hours: My Active Orders 06/08/21 17:55 Cardiac Monitoring [RC] . DIRECTED Sodium Chloride 0.9% [Saline Flush] 10 ml FLUSH ASDIRECTED PRN Peripheral IV Insertion Adult [OM.PC] Stat 06/08/21 17:56 Peripheral IV Care [RC] . DIRECTED Chest 1V Frontal [CR] Stat - Assessment/Plan Last 24 Hours: My Active Orders 06/08/21 17:55 Cardiac Monitoring [RC] . DIRECTED Sodium Chloride 0.9% [Saline Flush] 10 ml FLUSH ASDIRECTED PRN Peripheral IV Insertion Adult [OM.PC] Stat 06/08/21 17:56 Peripheral IV Care [RC] . DIRECTED Chest 1V Frontal [CR] Stat
[2021-06-08 19:25] VITALS: BP 137/79; PULSE 71
--- NOTE | 2021-06-09 08:28 | CR ---
Chest: Portable view of the chest was obtained. Comparison: Prior chest x-ray of 06/21/19. Heart size and mediastinum are normal. Lungs are clear with no acute parenchymal change. Bony structures show nothing acute. Impression: 1. Nothing acute is seen on portable chest x-ray. Diagnostic code #1
== END 2021-06-08 19:47 | disposition home or self-care (01) ==
LOC: JD.ED 17:22
DX: R00.2 Palpitations (principal); I48.91 Unspecified atrial fibrillation; E78.00 Pure hypercholesterolemia, unspecified; I10 Essential (primary) hypertension; E11.9 Type 2 diabetes mellitus without complications; E03.9 Hypothyroidism, unspecified; Z88.1 Allergy status to other antibiotic agents; Z79.899 Other long term (current) drug therapy; Z79.82 Long term (current) use of aspirin
CPT/HCPCS: 36415; 71045; 71045-26; 80053; 84443; 84484; 85025; 93005; 93225; 93226; 99285-25

== ENCOUNTER 2022-02-23 06:45 | Emergency (ER) | payer MEDICARE, OTHER ==
[2022-02-23 09:42] VITALS: BP 115/82; PULSE 60
== END 2022-02-23 09:33 | disposition home or self-care (01) ==
LOC: JD.ED 06:45
DX: I48.0 Paroxysmal atrial fibrillation (principal); E11.9 Type 2 diabetes mellitus without complications; E03.9 Hypothyroidism, unspecified; E78.00 Pure hypercholesterolemia, unspecified; Z79.899 Other long term (current) drug therapy; Z79.82 Long term (current) use of aspirin; Z88.1 Allergy status to other antibiotic agents; Z88.8 Allergy status to other drugs, medicaments and biological substances
CPT/HCPCS: 36415; 80053; 83735; 83880; 84439; 84443; 84481; 84484; 85025; 93005; 93010; 99284; 99285

== ENCOUNTER 2022-05-31 13:19 | Emergency (ER) | payer MEDICARE ==
[2022-05-31 15:53] VITALS: BP 129/65; PULSE 80
== END 2022-05-31 14:15 | disposition home or self-care (01) ==
LOC: JD.ED 13:19
DX: U07.1 COVID-19 (principal); J06.9 Acute upper respiratory infection, unspecified; J01.91 Acute recurrent sinusitis, unspecified; E78.00 Pure hypercholesterolemia, unspecified; I10 Essential (primary) hypertension; E11.9 Type 2 diabetes mellitus without complications; Z88.1 Allergy status to other antibiotic agents; Z88.8 Allergy status to other drugs, medicaments and biological substances; Z79.899 Other long term (current) drug therapy; Z79.82 Long term (current) use of aspirin; Z90.49 Acquired absence of other specified parts of digestive tract
CPT/HCPCS: 99283; U0002

== ENCOUNTER 2023-03-29 08:23 | Emergency (ER) | payer MEDICARE, OTHER ==
[2023-03-29 08:32] VITALS: PULSE 55
[2023-03-29] MEDS ORDERED: Sodium Chloride 0.9% 10 ML Syringe FLUSH PRN (08:38)
[2023-03-29] MEDS ORDERED: Sodium Chloride 0.9% 1,000 ML IV SCH (08:45)
[2023-03-29 09:04] LABS: BASOPHILS ABSOLUTE AUTO 0.1 K/mm3 (0.0-0.2); BASOPHILS PERCENT AUTO 0.5 % (0.0-1.0); EOSINOPHILS ABSOLUTE AUTO 0.1 K/mm3 (0.0-0.4); EOSINOPHILS PERCENT AUTO 1.4 % (0.0-6.0); HEMATOCRIT 45.7 % (42.0-52.0); IMMATURE GRAN ABSOLUTE AUTO 0.05 K/mm3 (0.00-0.05); IMMATURE GRAN PERCENT AUTO 0.5 % (0.0-0.4); LYMPHOCYTES ABSOLUTE AUTO 1.8 K/mm3 (1.0-4.8); LYMPHOCYTES PERCENT AUTO 17.8 % (24.0-44.0); MEAN CORPUSCULAR HEMOGLOBIN 32.8 pg (28.0-32.0); MEAN CORPUSCULAR HGB CONC 33.5 g/dl (32.0-36.0); MEAN PLATELET VOLUME 10.1 fl (9.4-12.4); MONOCYTES ABSOLUTE AUTO 0.7 K/mm3 (0.0-0.8); MONOCYTES PERCENT AUTO 6.5 % (0.0-8.0); NEUTROPHILS ABSOLUTE AUTO 7.4 K/mm3 (1.8-7.7); NEUTROPHILS PERCENT AUTO 73.3 % (41.0-71.0); PLATELET COUNT,PLT 170 K/mm3 (150-400); RED BLOOD CELL COUNT 4.66 M/mm3 (4.52-5.90); WHITE BLOOD CELL COUNT,WBC 10.09 K/mm3 (3.9-11.3)
[2023-03-29 09:05] LABS: HEMOGLOBIN 15.3 gm/dl (14.0-18.0); MEAN CORPUSCULAR VOLUME 98.1 fl (83.0-99.0)
[2023-03-29 09:35] LABS: A/G RATIO 0.9 (1-2); ANION GAP 13.3 (5-15); BILIRUBIN TOTAL 0.5 mg/dL (0.2-1.0); BUN/CREATININE RATIO 16.7 (14-18); CALCIUM 8.4 mg/dL (8.5-10.1); CREATININE 1.2 mg/dL (0.7-1.3); EST CRCL DRUG DOSING (CG) 63.77 mL/min; MAGNESIUM 1.8 mg/dL (1.8-2.4); POTASSIUM,K 5.3 mEq/L (3.5-5.1); PROTEIN TOTAL,TP 6.4 g/dl (6.4-8.2)
[2023-03-29 10:39] LABS: HEMOGLOBIN A1C 8.2 %
[2023-03-29 10:40] VITALS: BP 116/74
== END 2023-03-29 10:55 | disposition home or self-care (01) ==
LOC: JD.ED 08:23
DX: R55 Syncope and collapse (principal); E11.65 Type 2 diabetes mellitus with hyperglycemia; I48.91 Unspecified atrial fibrillation; E78.00 Pure hypercholesterolemia, unspecified; I10 Essential (primary) hypertension; J45.909 Unspecified asthma, uncomplicated; E03.9 Hypothyroidism, unspecified; E66.9 Obesity, unspecified; Z68.38 Body mass index [BMI] 38.0-38.9, adult; Z86.16 Personal history of COVID-19; Z88.1 Allergy status to other antibiotic agents; Z88.8 Allergy status to other drugs, medicaments and biological substances; Z79.899 Other long term (current) drug therapy
CPT/HCPCS: 36415; 80053; 83036; 83735; 84484; 85025; 93005; 96360; 99285; J7030